=== PATIENT | male | born 1970 | race Caucasian/White ===

== ENCOUNTER 2017-02-24 17:21 | Inpatient (IN) | payer SELFPAY ==
[2017-02-24 18:03] VITALS: BMI 25.0
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
[2017-02-24] MEDS ORDERED: guaiFENesin/D-METHORPHAN HB 10 ML UNIT-DOSE CUPS PO PRN (20:32)
[2017-02-24] MEDS ORDERED: MAGNESIUM CITRATE 300 ML BOTTLE PO PRN (20:32)
[2017-02-24] MEDS ORDERED: MAGNESIUM HYDROX 2400MG/30ML ORAL SUSPENSION 30 ML CUP PO PRN (20:32)
[2017-02-24] MEDS ORDERED: METHADONE HCL 10 MG TABLET (FOR DETOX USE ONLY) PO ONE ×2 (20:32→23:00)
[2017-02-24] MEDS ORDERED: ACETAMINOPHEN 325 MG TABLET (FP) PO PRN (20:32)
[2017-02-24] MEDS ORDERED: MENTHOL/PHENOL 1 EACH UD MM PRN (20:32)
[2017-02-24] MEDS ORDERED: MAG HYDROX/AL HYDROX/SIMETH 30 ML UNIT-DOSE CUP PO PRN (20:32)
[2017-02-24] MEDS ORDERED: P-EPHED 60MG/TRIPROLIDI 2.5MG TABLET PO PRN (20:32)
[2017-02-24] MEDS ORDERED: hydrOXYzine PAMOATE 50 MG CAPSULE (FP) PO PRN (20:32)
[2017-02-24] MEDS ORDERED: LOPERAMIDE HCL 2 MG CAPSULE PO PRN (20:32)
[2017-02-24] MEDS ORDERED: NICOTINE POLACRILEX 2 MG GUM BC PRN (20:32)
[2017-02-24] MEDS: diazePAM 5 MG TABLET PO PRN (21:41)
[2017-02-24] MEDS: THIAMINE HCL 100 MG TABLET (FP) PO SCH (22:31)
[2017-02-24 22:39] LABS: URINE APPEARANCE CLEAR; URINE BILIRUBIN NEGATIVE (NEGATIVE); URINE BLOOD NEGATIVE (NEGATIVE); URINE COLOR YELLOW; URINE GLUCOSE (UA) NEGATIVE (NEGATIVE); URINE KETONE 1+ (NEGATIVE); URINE LEUK ESTERASE NEGATIVE (NEGATIVE); URINE NITRITE NEGATIVE (NEGATIVE); URINE PROTEIN NEGATIVE (NEGATIVE)
[2017-02-25] MEDS: diphenhydrAMINE HCL 50 MG CAPSULE PO PRN (00:04)
--- NOTE | 2017-02-25 09:30 | PN ---
BHS COWS - Scale Resting Pulse: 0= [place] 80 or Below Sweatin= Chills/Flushing Restless Observation: 3= Extraneous Movement Pupil Size: 1= Pupils >than Normal Bone or Joint Aches: 2= Severe Diffuse Aches Runny Nose/ Eye Tearin= Runny Nose/Eyes GI Upset > 30mins: 2= Nausea/Diarrhea Tremor Observation of Outstretched Hands: 2= Slight Tremor Visible Yawning Observation: 2= >3x During Session Anxiety or Irritability: 2=Irritable/Anxious Goose Flesh Skin: 0=Smooth Skin COWS Score: 17 BHS Progress Note (SOAP) Subjective: ALERT,IRRITABLE,ANXIOUS,INTERRUPTED SLEEP,TREMOR,PAIN IN THE BODY AND BACK Objective: 02/25/17 09:26 Vital Signs Temperature 97.9 F 02/25/17 06:00 Pulse Rate 59 L 02/25/17 06:00 Respiratory Rate 18 02/25/17 06:00 Blood Pressure 124/73 02/25/17 06:00 O2 Sat by Pulse Oximetry (%) 02/25/17 09:27 EKG SINUS RHYTHM WITH SINUS ARRHYTHMIA NON SPECIFIC T WAVE NO CHEST PAIN,NO SOB NO DIZZINESS Assessment: 02/25/17 09:29 WITHDRAWAL SYMPTOM Plan: TO CONTINUE DETOX
[2017-02-25] MEDS ORDERED: METHADONE HCL 10 MG TABLET (FOR DETOX USE ONLY) PO ONE (10:00)
[2017-02-25] MEDS: PRENATAL VITAMINS W/ FOLIC ACID TABLET (FP) PO SCH (10:05)
[2017-02-25 12:25] LABS: MCH 27.7 pg (25.7-33.7); MCHC 33.9 g/dl (32.0-35.9); MEAN CELL VOLUME 81.9 fl (80-96); MEAN PLT VOLUME 8.6 fl (7.5-11.1); PLATELET COUNT 259 K/MM3 (134-434); WHITE BLOOD COUNT 10.9 K/mm3 (4.0-10.0)
[2017-02-25 12:56] LABS: ALBUMIN 3.6 g/dl (3.4-5.0); ALK PHOS 42 U/L (45-117); ANION GAP 9 (8-16); BILIRUBIN,TOTAL 0.7 mg/dL (0.2-1.0); CALCIUM 9.3 mg/dL (8.5-10.1); CO2 28 mmol/L (21-32); CREATININE 0.9 mg/dL (0.7-1.3); GLUCOSE,RANDOM 141 mg/dL (74-106); SGOT/AST 28 U/L (15-37); SGPT/ALT 29 U/L (12-78); TOT PROT 7.3 g/dl (6.4-8.2)
[2017-02-25 14:14] LABS: HIV 1 & 2 AB NEGATIVE; HIV 1 AGp24 NEGATIVE
--- NOTE | 2017-02-25 14:57 | CONSULT ---
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 Substance Abuse History: Discussed in this session.Mr Austin indicates that this is an accurate description of his patterns of addiction : Smoking Cessation. Smoking history: Current every day smoker. Have you smoked in the past 12 months: Yes. Aproximately how many cigarettes per day: 20. Hx Chewing Tobacco Use: No. Initiated information on smoking cessation: Yes. 'Breaking Loose' booklet given: 02/24/17. - Substance & Tx. History. Hx Alcohol Use: No. Hx Substance Use: Yes. Substance Use Type: Heroin. Hx Substance Use Treatment: Yes (LAST DETOX AND REHAB WAS IN 2016). - Substances Abused. Heroin. Route: Injection. Frequency: Daily. Amount used: 15 BAGS. Age of first use: 36. Date of Last Use: 02/24/17 Medical History: Patient endorses good general health. Psychiatric History: Patient reports that his primary care physician has prescribed seroquel 100 mg/hs to address complaint of chronic insomnia.Mr Austin denies history of psychiatric hospitalizations.No history of regular psychiatric OPD care.Patient denies history of suicide attempts. Physical/Sexual Abuse/Trauma History: Patient denies. Additional Comment: Urine Drug Screen Results: GWENDOLYN-Cocaine, OPI-Opiates, AMP- Amphetamines, MET-Methamphetamine.Noted. Mental Status Exam - Mental Status Exam Alert and Oriented to: Time, Place, Person Cognitive Function: Good Patient Appearance: Well Groomed Mood: Nervous, Withdrawn, Anxious Affect: Mood Congruent, Constricted Patient Behavior: Fatigued, Appropriate, Cooperative Speech Pattern: Clear Voice Loudness: Normal Thought Process: Goal Oriented Thought Disorder: Not Present Hallucinations: Denies Suicidal Ideation: Denies Homicidal Ideation: Denies Insight/Judgement: Poor Sleep: Poorly, Difficulty falling asleep Appetite: Good Muscle strength/Tone: Normal Gait/Station: Normal Psychiatric Findings - Problem List ([place] 1, 2,3) (1) Opioid dependence with withdrawal Current Visit: Yes Status: Acute (2) Cocaine dependence Current Visit: Yes Status: Acute (3) Nicotine dependence Current Visit: Yes Status: Acute (4) Amphetamine abuse Current Visit: Yes Status: Acute (5) Substance induced mood disorder Current Visit: Yes Status: Acute (6) Insomnia Current Visit: Yes Status: Acute - Initial Treatment Plan Initial Treatment Plan: Psychoeducation.Detoxification.Seroquel 100 mg po hs.Side effects/benefits are discussed with diana patient.He agrees with this plan of care.Observation.
[2017-02-25] MEDS: diazePAM 5 MG TABLET PO PRN ×2 (14:58→19:37)
--- NOTE | 2017-02-25 21:23 | EKG ---
Test Reason : Blood Pressure : / mmHG Vent. Rate : 071 BPM Atrial Rate : 071 BPM P-R Int : 120 ms QRS Dur : 084 ms QT Int : 412 ms P-R-T Axes : 069 076 061 degrees QTc Int : 447 ms SINUS BRADYCARDIA WITH WANDERING ATRIAL PACEMAKER AND PERIODS OFJUNCTIOAL RHYTHM WITH AV DISASSOCATION. PROLONGED QTC. ABNORMAL ECG WHEN COMPARED WITH ECG OF 24-FEB-2017 20:48, NO MAJOR CHANGES SEEN CLINICAL CORRELATION AND FOLLOW UP TRACING Confirmed by MARIUSZ RODRIGUEZ MD ([id number]) on 02/25/2017 9:23:02 PM Referred By: Confirmed By:MARIUSZ RODRIGUEZ MD
[2017-02-25] MEDS: THIAMINE HCL 100 MG TABLET (FP) PO SCH (22:04)
[2017-02-25] MEDS: QUEtiapine FUMARATE 100 MG TABLET (FP) PO SCH (22:04)
[2017-02-26] MEDS: diazePAM 5 MG TABLET PO PRN ×3 (01:42→18:39)
[2017-02-26] MEDS: diphenhydrAMINE HCL 50 MG CAPSULE PO PRN ×2 (01:42→22:10)
--- NOTE | 2017-02-26 09:39 | PN ---
S COWS - Scale Resting Pulse: 0= ID 80 or Below Sweatin= Chills/Flushing Restless Observation: 3= Extraneous Movement Pupil Size: 1= Pupils >than Normal Bone or Joint Aches: 2= Severe Diffuse Aches Runny Nose/ Eye Tearin= Runny Nose/Eyes GI Upset > 30mins: 3= Vomiting/Diarrhea Tremor Observation of Outstretched Hands: 2= Slight Tremor Visible Yawning Observation: 2= >3x During Session Anxiety or Irritability: 2=Irritable/Anxious Goose Flesh Skin: 0=Smooth Skin COWS Score: 18 S Progress Note (SOAP) Subjective: ALERT,IRRITABLE,ANXIOUS,INTERRUPTED SLEEP,TREMOR,PAIN IN THE BODY,JOINT AND BACK Objective: 02/26/17 09:36 Vital Signs Temperature 97.5 F L 02/26/17 09:35 Pulse Rate 77 02/26/17 09:35 Respiratory Rate 18 02/26/17 09:35 Blood Pressure 140/91 02/26/17 09:35 O2 Sat by Pulse Oximetry (%) Laboratory Last Values WBC 10.9 K/mm3 (4.0-10.0) H 02/25/17 08:30 RBC 5.06 M/mm3 (4.00-5.60) 02/25/17 08:30 Hgb 14.0 GM/dL (11.7-16.9) 02/25/17 08:30 Hct 41.5 % (35.4-49) 02/25/17 08:30 MCV 81.9 fl (80-96) 02/25/17 08:30 MCH 27.7 pg (25.7-33.7) 02/25/17 08:30 MCHC 33.9 g/dl (32.0-35.9) 02/25/17 08:30 RDW 14.0 % (11.9-15.9) 02/25/17 08:30 Plt Count 259 K/MM3 (134-434) 02/25/17 08:30 MPV 8.6 fl (7.5-11.1) 02/25/17 08:30 Sodium 138 mmol/L (136-145) 02/25/17 08:30 Potassium 3.6 mmol/L (3.5-5.1) 02/25/17 08:30 Chloride 101 mmol/L (98-107) 02/25/17 08:30 Carbon Dioxide 28 mmol/L (21-32) 02/25/17 08:30 Anion Gap 9 (8-16) 02/25/17 08:30 BUN 12 mg/dL (7-18) 02/25/17 08:30 Creatinine 0.9 mg/dL (0.7-1.3) 02/25/17 08:30 Creat Clearance w eGFR > 60 (>60) 02/25/17 08:30 Random Glucose 141 mg/dL (74-106) H 02/25/17 08:30 Calcium 9.3 mg/dL (8.5-10.1) 02/25/17 08:30 Total Bilirubin 0.7 mg/dL (0.2-1.0) 02/25/17 08:30 AST 28 U/L (15-37) 02/25/17 08:30 ALT 29 U/L (12-78) 02/25/17 08:30 Alkaline Phosphatase 42 U/L (45-117) L 02/25/17 08:30 Total Protein 7.3 g/dl (6.4-8.2) 02/25/17 08:30 Albumin 3.6 g/dl (3.4-5.0) 02/25/17 08:30 Urine Color Yellow 02/24/17 22:20 Urine Appearance Clear 02/24/17 22:20 Urine pH 6.0 (5.0-8.0) 02/24/17 22:20 Ur Specific [place] 1.020 (1.005-1.025) 02/24/17 22:20 Urine Protein Negative (NEGATIVE) 02/24/17 22:20 Urine Glucose (UA) Negative (NEGATIVE) 02/24/17 22:20 Urine Ketones 1+ (NEGATIVE) H 02/24/17 22:20 Urine Blood Negative (NEGATIVE) 02/24/17 22:20 Urine Nitrite Negative (NEGATIVE) 02/24/17 22:20 Urine Bilirubin Negative (NEGATIVE) 02/24/17 22:20 Urine Urobilinogen 2.0 mg/dL (0.2-1.0) 02/24/17 22:20 Ur Leukocyte Esterase Negative (NEGATIVE) 02/24/17 22:20 Hepatitis C Antibody <0.1 s/co ratio (0.0-0.9) 02/24/17 08:30 HIV 1&2 Antibody Screen Negative 02/25/17 08:30 HIV P24 Antigen Negative 02/25/17 08:30 02/26/17 09:37 Assessment: 02/26/17 09:37 WITHDRAWAL SYMPTOM 02/26/17 09:38 Plan: CONTUNUE DETOX,ENCOURAGE ORAL FLUID,FASTING GLUCOSE IN AM,REPEAT CBC IN AM
[2017-02-26] MEDS ORDERED: METHADONE HCL 5 MG TABLET (FOR DETOX USE ONLY) PO ONE (10:00)
[2017-02-26] MEDS: PRENATAL VITAMINS W/ FOLIC ACID TABLET (FP) PO SCH (10:19)
[2017-02-26] MEDS: IBUPROFEN 400 MG TABLET (FP) PO PRN (10:20)
--- NOTE | 2017-02-26 14:51 | EKG ---
Test Reason : Blood Pressure : / mmHG Vent. Rate : 061 BPM Atrial Rate : 061 BPM P-R Int : 136 ms QRS Dur : 118 ms QT Int : 456 ms P-R-T Axes : 080 065 080 degrees QTc Int : 459 ms NORMAL SINUS RHYTHM VENTRICULAR PRE-EXCITATION, WPW PATTERN TYPE B ABNORMAL ECG WHEN COMPARED WITH ECG OF 24-FEB-2017 20:48, NO SIGNIFICANT CHANGE WAS FOUND Confirmed by NOE DAMIAN MD ([id number]) on 02/26/2017 2:50:58 PM Referred By: Confirmed By:NOE DAMIAN MD
[2017-02-26] MEDS: QUEtiapine FUMARATE 100 MG TABLET (FP) PO SCH (22:10)
[2017-02-26] MEDS: THIAMINE HCL 100 MG TABLET (FP) PO SCH (22:11)
[2017-02-27] MEDS: diazePAM 5 MG TABLET PO PRN ×3 (04:49→14:27)
[2017-02-27] MEDS: IBUPROFEN 400 MG TABLET (FP) PO PRN ×2 (04:50→11:12)
[2017-02-27] MEDS ORDERED: METHADONE HCL 5 MG TABLET (FOR DETOX USE ONLY) PO ONE (10:00)
[2017-02-27 10:06] LABS: MCH 27.4 pg (25.7-33.7); MCHC 33.4 g/dl (32.0-35.9); MEAN CELL VOLUME 81.8 fl (80-96); MEAN PLT VOLUME 8.6 fl (7.5-11.1); PLATELET COUNT 272 K/MM3 (134-434); RDW 13.9 % (11.9-15.9); WHITE BLOOD COUNT 12.1 K/mm3 (4.0-10.0)
[2017-02-27] MEDS: PRENATAL VITAMINS W/ FOLIC ACID TABLET (FP) PO SCH (10:21)
[2017-02-27] MEDS ORDERED: CYCLOBENZAPRINE HCL 10 MG TABLET (FP) PO PRN (10:25)
[2017-02-27] MEDS ORDERED: CYCLOBENZAPRINE HCL 10 MG TABLET (FP) PO ONE (10:25)
--- NOTE | 2017-02-27 11:28 | PN ---
S Progress Note (SOAP) Subjective: alert,irritable,anxious,interrupted sleep,pain in the body Objective: 02/27/17 11:25 Vital Signs Temperature 97.0 F L 02/27/17 10:00 Pulse Rate 83 02/27/17 10:00 Respiratory Rate 18 02/27/17 10:00 Blood Pressure 132/99 02/27/17 10:00 O2 Sat by Pulse Oximetry (%) Laboratory Results - last 24 hr 02/25/17 02/27/17 02/27/17 08:30 07:00 07:00 WBC 12.1 H RBC 4.92 Hgb 13.5 Hct 40.2 MCV 81.8 MCH 27.4 MCHC 33.4 RDW 13.9 Plt Count 272 MPV 8.6 Fasting Glucose 104 RPR Titer Nonreactive HIV 1&2 Antibody Screen Negative HIV P24 Antigen Negative fasting glucose is 104 Assessment: 02/27/17 11:26 withdrawal symptom Plan: continue detox,encourage fluid,
[2017-02-27] MEDS: THIAMINE HCL 100 MG TABLET (FP) PO SCH (22:16)
[2017-02-27] MEDS: QUEtiapine FUMARATE 100 MG TABLET (FP) PO SCH (22:16)
[2017-02-27] MEDS: diphenhydrAMINE HCL 50 MG CAPSULE PO PRN (22:17)
--- NOTE | 2017-02-28 09:52 | PN ---
S Progress Note (SOAP) Subjective: alert,no complaint Objective: 02/28/17 09:51 Vital Signs Temperature 98.5 F 02/28/17 06:20 Pulse Rate 63 02/28/17 06:20 Respiratory Rate 18 02/28/17 06:20 Blood Pressure 119/67 02/28/17 06:20 O2 Sat by Pulse Oximetry (%) Assessment: 02/28/17 09:51 patient is stable for discharge today Plan: discharge today,follow up with after care program as arrangement
--- NOTE | 2017-02-28 09:57 | DS ---
[facility] Detox Discharge Summary Admission Date: 02/24/17 Discharge Date: 02/28/17 - History Present History: Opioid Dependence Additional Comments: follow up with after care program as arrangement Pertinent Past History: nicotine dependence - Physical Exam Results Vital Signs: Vital Signs Temperature 98.5 F 02/28/17 06:20 Pulse Rate 63 02/28/17 06:20 Respiratory Rate 18 02/28/17 06:20 Blood Pressure 119/67 02/28/17 06:20 O2 Sat by Pulse Oximetry (%) Pertinent Admission Physical Exam Findings: withdrawal symptom - Treatment Hospital Course: Detox Protocol Followed, Detoxed Safely, Responded well, Discharged Condition Good, Rehab Referral Accepted Patient has Accepted a Rehab Referral to: [facility] - Medication Discharge Medications: Ambulatory Orders Quetiapine Fumarate [Seroquel] 100 mg PO HS #30 tablet 02/25/17 - Diagnosis (1) Insomnia Current Visit: Yes Status: Acute (2) Nicotine dependence Current Visit: Yes Status: Acute (3) Opioid dependence with withdrawal Current Visit: Yes Status: Acute (4) Substance induced mood disorder Current Visit: Yes Status: Acute - AMA Did Patient Leave Against Medical Advice: No
[2017-02-28] MEDS ORDERED: METHADONE HCL 10 MG TABLET (FOR DETOX USE ONLY) PO ONE (10:00)
[2017-02-28] MEDS ORDERED: METHADONE HCL 5 MG TABLET (FOR DETOX USE ONLY) PO ONE (10:00)
[2017-02-28 10:11] VITALS: BP 135/80; PULSE 80; TEMP 97.4
[2017-02-28] MEDS: PRENATAL VITAMINS W/ FOLIC ACID TABLET (FP) PO SCH (10:18)
[2017-03-01] MEDS ORDERED: METHADONE HCL 5 MG TABLET (FOR DETOX USE ONLY) PO ONE (06:00)
== END 2017-02-28 11:45 | disposition home or self-care (01) | DRG 773 ==
LOC: YASAS 17:21 → Y6N 20:45
PROVIDERS: ADMIT Internal Medicine; ATTEND Internal Medicine
PROC: HZ2ZZZZ Detoxification Services for Substance Abuse Treatment (ICD-10-PCS; principal; 2017-02-24)
DX: F11.23 Opioid dependence with withdrawal (principal); F14.20 Cocaine dependence, uncomplicated; F15.10 Other stimulant abuse, uncomplicated; F17.210 Nicotine dependence, cigarettes, uncomplicated; F19.24 Other psychoactive substance dependence with psychoactive substance-induced mood disorder; G47.00 Insomnia, unspecified; I49.9 Cardiac arrhythmia, unspecified; Z59.0 Homelessness
CPT/HCPCS: 36415; 80053; 81003; 82947; 85027; 86593; 86803; 87389; 93005; 93010